=== PATIENT | female | born 1970 | race Caucasian/White ===

== ENCOUNTER → 2016-12-30 | Outpatient (CLI) | payer OTHER | LOC: FIMAGING 12:40 | PROVIDERS: ATTEND Nurse Practitioner Women's Health | DX: N64.4 Mastodynia (principal) | CPT/HCPCS: G0204 ==

== ENCOUNTER 2018-10-04 18:29 | Observation (INO) | payer OTHER ==
[2018-10-04 19:25] LABS: PLATELET COUNT 332 10^3/uL (150-400)
--- NOTE | 2018-10-04 19:37 | EDPHY ---
General - History Smoking Status: Never smoked Time Seen by Provider: 10/04/18 18:45 Narrative: CLINICAL IMPRESSION: Acute appendicitis ASSESSMENT/PLAN: 48-year-old female with a history of MS and type 1 diabetes presents to the emergency department with a 1 day history of right lower quadrant abdominal pain. No associated nausea, vomiting, diarrhea, dysuria, urgency, flank pain or visible hematuria. Patient is afebrile with stable vital signs on arrival. She does have guarding and pain to the right lower quadrant. Labs reassuring with no leukocytosis, transaminitis, pancreatitis, electrolyte imbalance or metabolic disturbance. No evidence of UTI or pyelonephritis. Pelvic ultrasound read by Radiology as positive for appendicitis with the appendix measuring 14 mm, no mention of surrounding free air or evidence of perforation. Remainder of pelvic organs normal appearing. Discussed with Dr. Rutledge, as well as Dr. Funk. He will plan to take the patient to the operating room tonight. She was kept NPO. Glucose controlled well in the ED. Antibiotics initiated. DIFFERENTIAL DX: Abdominal pain includes but not limited to urinary tract infection, pyelonephritis, infection, ectopic , salpingitis, TOA, ovarian torsion, ovarian cyst, endometriosis, uterine fibroids, acute appendicitis, acute diverticulitis, small-bowel obstruction, constipation ED PROCEDURES: See lab and/or imaging results below ED COURSE: Seen and assessed by myself. Appears uncomfortable with exam but is declining analgesics. Plan for urine, test, labs, and imaging. 7:30 p.m.: Patient reassessed, continues to decline analgesics. Labs reviewed , urine negative, no sign of UTI, no leukocytosis, transaminitis, pancreatitis, or significant electrolyte imbalance. Glucose 74 although patient states she also just checked and was 110. She is feeling okay. Imaging options discussed and she would like to start with pelvic ultrasound. 8:30 P.M.: Acute appendicitis by ultrasound. Results discussed with patient. Last ate pizza at 3:[address] Marthaller. He will come to ED to evaluate the patient. She is kept NPO. Rocephin and Flagyl ordered. CHIEF COMPLAINT: Right lower quadrant abdominal pain HPI: 48-year-old female with past medical history of multiple sclerosis and type 1 diabetes presents to the emergency department with right lower quadrant abdominal pain that began gradually this morning and has been getting worse throughout the day. No associated nausea, vomiting, diarrhea. She states she has chronic constipation but did have a bowel movement this morning. No associated fever or chills. She had pizza approximately 3 hr prior to arrival that did not exacerbate her pain. Pain does radiate up into the right upper quadrant. No flank pain, dysuria, urinary urgency or frequency. She states "I could be " although is not late on her menstrual cycle and is getting regular menstrual cycles. No abnormal discharge or vaginal bleeding. No history of kidney stones or visible hematuria. She did not take anything for her symptoms prior to arrival. She drove herself to the ED. PAST MEDICAL HISTORY: MS, type 1 diabetes See nurse/triage notes for additional history if applicable Pertinent Past Surgical History: None reported Family History: Noncontributory Social History: Nonsmoker, no alcohol REVIEW OF SYSTEMS: All other systems negative Constitutional: No fever, no chills, appetite change. ENT: No sore throat, congestion, ear pain. Cardiovascular: No chest pain, no palpitations. Respiratory: No cough, no shortness of breath. Gastrointestinal: positive for abdominal pain, no nausea or vomiting, diarrhea. Genitourinary: No hematuria, dysuria, flank pain, pelvic pain Musculoskeletal: No back pain, joint swelling, joint pain, myalgias. Skin: No rashes, color change. Neurological: No headache, dizziness, weakness. PHYSICAL EXAM: General Appearance: Alert, oriented, appropriate, cooperative, tearful, NAD, well hydrated, VSS, no hypoxia. HEENT: Oropharynx clear is no erythema or exudates, no tonsillar hypertrophy or asymmetry. Dentition without abnormality.] Respiratory: There are no retractions, lungs are clear to auscultation. Cardiac: Regular rate and rhythm, no murmurs or gallops. Gastrointestinal: Abdomen is soft, tender and guarding to right lower quadrant extending to right upper quadrant, negative Betancourt sign, bowel sounds normal, no masses/hernia, no rigidity. Neurological: [ Alert and oriented x 3, CN 2-12 grossly intact Skin: Warm, dry, no rashes, no nodules on palpation. MEDICAL DECISION MAKING: Patient was seen independently. Secondary supervising physician at time of evaluation was Dr Henley . Diagnosis: Acute appendicitis . New, requires workup Summary: See Assessment and Plan for summary of ED visit Clinical lab tests: ordered / reviewed. Independent visualization of images, tracing, or specimens: Yes. Discussed patient with another provider: Dr. Henley, Dr. Rutledge, general surgery Patient Progress: Stable in the ED. (Raul Cordero) Medical Decision Making: I did not see this patient while she was in the emergency department. However her care was discussed with the PA while the patient was in the department. I agree with treatment plan and management (Silvio Henley) - Diagnostics Imaging Results: Imaging Impressions Pelvic/Renal Ultrasound 10/04/18 19:36 Impression: 1. Findings compatible with appendicitis. 2. Normal-appearing uterus and ovaries. Findings discussed with Raul Cordero PAC at 20:30 hour, 10/04/2018. - Objective Vital Signs: Initial Vital Signs Temperature (C) 36.8 C 10/04/18 18:31 Heart Rate 77 10/04/18 18:31 Respiratory Rate 18 10/04/18 18:31 Blood Pressure 133/70 H 10/04/18 18:31 O2 Sat (%) 98 10/04/18 18:31 O2 Delivery Mode Room Air Allergies/Adverse Reactions: No Known Allergies Allergy (Unverified 03/13/15 07:23) Home Medications: Medication Instructions Recorded Herbals/Supplements -Info Only 1 each PO DAILY 03/13/15 Insulin Glulisine [Apidra] 2 - 3 unit SQ TIDMEAL 03/13/15 Levothyroxine [Synthroid 50 mcg 50 mcg PO DAILY06 03/13/15 (*)] Fingolimod HCl [Gilenya] 0.5 mg PO DAILY 10/04/18 Insulin Degludec [Tresiba] 11 unit SQ HS 10/04/18 Laboratory Results: Laboratory Results 10/04/18 18:45 10/04/18 18:45 10/04/18 10/04/18 10/04/18 19:00 19:00 18:45 WBC RBC Hgb Hct MCV MCH MCHC RDW Plt Count MPV Neut % (Auto) Lymph % (Auto) [place] % (Auto) Eos % (Auto) Baso % (Auto) Nucleat RBC Rel Count Absolute Neuts (auto) Absolute Lymphs (auto) Absolute Monos (auto) Absolute Eos (auto) Absolute Basos (auto) Absolute Nucleated RBC Immature Gran % Immature Gran # RBC/WBC/PLT Morphology Platelet Estimate Sodium 135 mEq/L mEq/L (135-145) Potassium 4.7 mEq/L mEq/L (3.5-5.2) Chloride 100 mEq/L mEq/L (97-110) Carbon Dioxide 24 mEq/l mEq/l (22-31) Anion Gap 11 mEq/L mEq/L (6-14) BUN 18 mg/dL mg/dL (7-23) Creatinine 0.7 mg/dL mg/dL (0.6-1.0) Estimated GFR > 60 Glucose 74 mg/dL mg/dL (70-100) Calcium 9.0 mg/dL mg/dL (8.5-10.4) Total Bilirubin 0.7 mg/dL mg/dL (0.1-1.4) Conjugated Bilirubin 0.6 mg/dL H mg/dL (0.0-0.5) Unconjugated Bilirubin 0.1 mg/dL mg/dL (0.0-1.1) AST 45 IU/L IU/L (14-46) ALT 28 IU/L IU/L (9-52) Alkaline Phosphatase 92 IU/L IU/L (38-126) Total Protein 8.0 g/dL g/dL (6.3-8.2) Albumin 4.3 g/dL g/dL (3.5-5.0) Lipase 22 IU/L L IU/L (23-300) Specimen Hemolysis 112 Urine Color YELLOW Urine Appearance HAZY Urine pH 6.0 (5.0-7.5) Ur Specific [place] 1.013 (1.002-1.030) Urine Protein NEGATIVE (NEGATIVE) Urine Ketones NEGATIVE (NEGATIVE) Urine Blood NEGATIVE (NEGATIVE) Urine Nitrate NEGATIVE (NEGATIVE) Urine Bilirubin NEGATIVE (NEGATIVE) Urine Urobilinogen NEGATIVE EU EU (0.2-1.0) Ur Leukocyte Esterase 2+ H (NEGATIVE) Urine RBC 1-3 /hpf /hpf (0-3) Urine WBC 15-25 /hpf H /hpf (0-3) Ur Epithelial Cells TRACE /lpf /lpf (NONE-1+) Urine Bacteria 2+ /hpf H /hpf (NONE SEEN) Urine Mucus TRACE /lpf /lpf (NONE-1+) Urine Glucose NEGATIVE (NEGATIVE) Urine Test NEGATIVE 10/04/18 18:45 WBC 9.00 10^3/uL 10^3/uL (3.80-9.50) RBC 4.23 10^6/uL 10^6/uL (4.18-5.33) Hgb 13.5 g/dL g/dL (12.6-16.3) Hct 40.5 % % (38.0-47.0) MCV 95.7 fL fL (81.5-99.8) MCH 31.9 pg pg (27.9-34.1) MCHC 33.3 g/dL g/dL (32.4-36.7) RDW 12.3 % % (11.5-15.2) Plt Count 332 10^3/uL 10^3/uL (150-400) MPV 10.1 fL fL (8.7-11.7) Neut % (Auto) 81.5 % H % (39.3-74.2) Lymph % (Auto) 4.0 % L % (15.0-45.0) [place] % (Auto) 12.1 % % (4.5-13.0) Eos % (Auto) 1.8 % % (0.6-7.6) Baso % (Auto) 0.3 % % (0.3-1.7) Nucleat RBC Rel Count 0.0 % % (0.0-0.2) Absolute Neuts (auto) 7.34 10^3/uL H 10^3/uL (1.70-6.50) Absolute Lymphs (auto) 0.36 10^3/uL L 10^3/uL (1.00-3.00) Absolute Monos (auto) 1.09 10^3/uL H 10^3/uL (0.30-0.80) Absolute Eos (auto) 0.16 10^3/uL 10^3/uL (0.03-0.40) Absolute Basos (auto) 0.03 10^3/uL 10^3/uL (0.02-0.10) Absolute Nucleated RBC 0.00 10^3/uL 10^3/uL (0-0.01) Immature Gran % 0.3 % % (0.0-1.1) Immature Gran # 0.03 10^3/uL 10^3/uL (0.00-0.10) RBC/WBC/PLT Morphology TNP Platelet Estimate TNP Sodium Potassium Chloride Carbon Dioxide Anion Gap BUN Creatinine Estimated GFR Glucose Calcium Total Bilirubin Conjugated Bilirubin Unconjugated Bilirubin AST ALT Alkaline Phosphatase Total Protein Albumin Lipase Specimen Hemolysis Urine Color Urine Appearance Urine pH Ur Specific [place] Urine Protein Urine Ketones Urine Blood Urine Nitrate Urine Bilirubin Urine Urobilinogen Ur Leukocyte Esterase Urine RBC Urine WBC Ur Epithelial Cells Urine Bacteria Urine Mucus Urine Glucose Urine Test Medications Given: Miscellaneous Medication (Insulin Glulisine [Apidra]) 2 - 3 unit SQ TIDMEAL LAISHA Stop: 04/03/19 07:59 Last Admin: 10/04/18 23:15 Dose: 1 unit Discontinued Medications Bupivacaine HCl/Epinephrine Bitart (Bupivacaine/Epi) Confirm Administered Dose 30 ml .ROUTE .STK-MED ONE Stop: 10/04/18 21:24 Last Admin: 10/04/18 21:50 Dose: 20 ml Fentanyl (Sublimaze) 25 - 100 mcg IVP Q5M PRN PRN Reason: PACU, IMMEDIATE Pain control Stop: 10/04/18 23:25 Last Admin: 10/04/18 23:24 Dose: 50 mcg Ceftriaxone Sodium/Dextrose (Rocephin 1 Gm (Premix)) 50 mls @ 100 mls/hr IV EDNOW ONE PRN Reason: Protocol Stop: 10/04/18 21:02 Last Admin: 10/04/18 20:48 Dose: 50 mls Metronidazole/Sodium Chloride (Flagyl 500 Mg (Premix)) 100 mls @ 100 mls/hr IV EDNOW ONE PRN Reason: Protocol Stop: 10/04/18 21:33 Last Admin: 10/04/18 21:12 Dose: 100 mls Departure - Departure Disposition: [facility] Acute Clinical Impression: Acute appendicitis Qualifiers: Acute appendicitis type: other Qualified Code(s): K35.890 - Other acute appendicitis without perforation or gangrene Condition: Fair
--- NOTE | 2018-10-04 20:57 | PDGENHP ---
History and Physical - Chief Complaint abdominal pain - History of Present Illness 48yo F presents with acute onset of RLQ pain. Pain started this AM, was going on about her day but the pain persisted. Was able to eat this afternoon and generally felt ok. [place] the dog park and began to have more pain, a friend suggested appendicitis which prompted her presentation here. Endorses RLQ pain, sharp, 7/10 with palpation, some chills, no fevers. Pain is stabbing and radiates to ipsilateral shoulder History Information - Allergies/Home Medication List Allergies/Adverse Reactions: No Known Allergies Allergy (Unverified 03/13/15 07:23) Home Medications: Apidra 03/13/15 [Last Taken Unknown] Herbals/Supplements -Info Only 03/13/15 [Last Taken Unknown] LEVOTHYROXINE SODIUM 03/13/15 [Last Taken Unknown] Lantus Solostar 03/13/15 [Last Taken Unknown] I have personally reviewed and updated: medical history Past Medical History: Type 1 DM, MS - Surgical History Additional surgical history: none - Family History Positive for: non-pertinent - Social History Smoking Status: Never smoked Additional social history: teacher Review of Systems Review of Systems: ROS: 10pt was reviewed & negative except for what was stated in HPI & below Physical Exam Physical Exam: Temp Pulse Resp BP Pulse Ox 36.8 C 77 18 133/70 H 98 10/04/18 18:31 10/04/18 18:31 10/04/18 18:31 10/04/18 18:31 10/04/18 18:31 Constitutional: no apparent distress, appears nourished, not in pain Eyes: PERRL, anicteric sclera, EOMI Ears, Nose, Mouth, Throat: moist mucous membranes, hearing normal, ears appear normal, no oral mucosal ulcers Cardiovascular: regular rate and rhythym, no murmur, rub, or gallop, No edema Respiratory: no respiratory distress, no rales or rhonchi, clear to auscultation Gastrointestinal: normoactive bowel sounds, other (TTP in RLQ with rebound ) Genitourinary: no bladder fullness, no bladder tenderness Skin: warm, normal color, no rashes or abrasions, no fluctuance, no induration, No mottled Musculoskeletal: full muscle strength, no muscle tenderness, normal joint ROM, no joint effusions Psychiatric: interacting appropriately, not anxious, not encephalopathic, thought process linear Lymph, Heme, Immunologic: no cervical LAD, no supraclavicular LAD Lab Data & Imaging Review 10/04/18 18:45 10/04/18 18:45 WBC 9.00 10^3/uL (3.80-9.50) 10/04/18 18:45 RBC 4.23 10^6/uL (4.18-5.33) 10/04/18 18:45 Hgb 13.5 g/dL (12.6-16.3) 10/04/18 18:45 Hct 40.5 % (38.0-47.0) 10/04/18 18:45 MCV 95.7 fL (81.5-99.8) 10/04/18 18:45 MCH 31.9 pg (27.9-34.1) 10/04/18 18:45 MCHC 33.3 g/dL (32.4-36.7) 10/04/18 18:45 RDW 12.3 % (11.5-15.2) 10/04/18 18:45 Plt Count 332 10^3/uL (150-400) 10/04/18 18:45 MPV 10.1 fL (8.7-11.7) 10/04/18 18:45 Neut % (Auto) 81.5 % (39.3-74.2) H 10/04/18 18:45 Lymph % (Auto) 4.0 % (15.0-45.0) L 10/04/18 18:45 [place] % (Auto) 12.1 % (4.5-13.0) 10/04/18 18:45 Eos % (Auto) 1.8 % (0.6-7.6) 10/04/18 18:45 Baso % (Auto) 0.3 % (0.3-1.7) 10/04/18 18:45 Nucleat RBC Rel Count 0.0 % (0.0-0.2) 10/04/18 18:45 Absolute Neuts (auto) 7.34 10^3/uL (1.70-6.50) H 10/04/18 18:45 Absolute Lymphs (auto) 0.36 10^3/uL (1.00-3.00) L 10/04/18 18:45 Absolute Monos (auto) 1.09 10^3/uL (0.30-0.80) H 10/04/18 18:45 Absolute Eos (auto) 0.16 10^3/uL (0.03-0.40) 10/04/18 18:45 Absolute Basos (auto) 0.03 10^3/uL (0.02-0.10) 10/04/18 18:45 Absolute Nucleated RBC 0.00 10^3/uL (0-0.01) 10/04/18 18:45 Immature Gran % 0.3 % (0.0-1.1) 10/04/18 18:45 Immature Gran # 0.03 10^3/uL (0.00-0.10) 10/04/18 18:45 RBC/WBC/PLT Morphology TNP 10/04/18 18:45 Platelet Estimate TNP 10/04/18 18:45 Sodium 135 mEq/L (135-145) 10/04/18 18:45 Potassium 4.7 mEq/L (3.5-5.2) 10/04/18 18:45 Chloride 100 mEq/L (97-110) 10/04/18 18:45 Carbon Dioxide 24 mEq/l (22-31) 10/04/18 18:45 Anion Gap 11 mEq/L (6-14) 10/04/18 18:45 BUN 18 mg/dL (7-23) 10/04/18 18:45 Creatinine 0.7 mg/dL (0.6-1.0) 10/04/18 18:45 Estimated GFR > 60 10/04/18 18:45 Glucose 74 mg/dL (70-100) 10/04/18 18:45 Calcium 9.0 mg/dL (8.5-10.4) 10/04/18 18:45 Total Bilirubin 0.7 mg/dL (0.1-1.4) 10/04/18 18:45 Conjugated Bilirubin 0.6 mg/dL (0.0-0.5) H 10/04/18 18:45 Unconjugated Bilirubin 0.1 mg/dL (0.0-1.1) 10/04/18 18:45 AST 45 IU/L (14-46) 10/04/18 18:45 ALT 28 IU/L (9-52) 10/04/18 18:45 Alkaline Phosphatase 92 IU/L (38-126) 10/04/18 18:45 Total Protein 8.0 g/dL (6.3-8.2) 10/04/18 18:45 Albumin 4.3 g/dL (3.5-5.0) 10/04/18 18:45 Lipase 22 IU/L (23-300) L 10/04/18 18:45 Specimen Hemolysis 112 10/04/18 18:45 Urine Color YELLOW 10/04/18 19:00 Urine Appearance HAZY 10/04/18 19:00 Urine pH 6.0 (5.0-7.5) 10/04/18 19:00 Ur Specific [place] 1.013 (1.002-1.030) 10/04/18 19:00 Urine Protein NEGATIVE (NEGATIVE) 10/04/18 19:00 Urine Ketones NEGATIVE (NEGATIVE) 10/04/18 19:00 Urine Blood NEGATIVE (NEGATIVE) 10/04/18 19:00 Urine Nitrate NEGATIVE (NEGATIVE) 10/04/18 19:00 Urine Bilirubin NEGATIVE (NEGATIVE) 10/04/18 19:00 Urine Urobilinogen NEGATIVE EU (0.2-1.0) 10/04/18 19:00 Ur Leukocyte Esterase 2+ (NEGATIVE) H 10/04/18 19:00 Urine RBC 1-3 /hpf (0-3) 10/04/18 19:00 Urine WBC 15-25 /hpf (0-3) H 10/04/18 19:00 Ur Epithelial Cells TRACE /lpf (NONE-1+) 10/04/18 19:00 Urine Bacteria 2+ /hpf (NONE SEEN) H 10/04/18 19:00 Urine Mucus TRACE /lpf (NONE-1+) 10/04/18 19:00 Urine Glucose NEGATIVE (NEGATIVE) 10/04/18 19:00 Urine Test NEGATIVE 10/04/18 19:00 Visualized and Interpreted imaging results: Yes Interpretation: US: 14mm inflamed appendix, non-compressible Assessment & Plan Assessment: Acute appendicitis (Acute) Plan: 48yo F with acute appendicitis - ABX given in ED - US looks to be non-perfd - to OR for lap appy, RBA discussed.
[2018-10-04] MEDS ORDERED: BUPIVACAINE/EPI 0.25% 30 ML SDV ONE (21:23)
--- NOTE | 2018-10-04 21:35 | PDANEPAE ---
ANE History of Present Illness appendicitis s/f lap appy ANE Past Medical History - Pulmonary History Hx Oxygen in Use at Home: No - Endocrine History Hx Diabetes: Yes Hypothyroid: Yes Endocrine History Comment: IDDM - Neurological & Psychiatric Hx Hx Neurological and Psychiatric Disorders: Yes Neurological / Psychiatric History Comment: MS. right sided weakness ANE Review of Systems Review of systems is: negative Review of Systems: - Exercise capacity Exercise capacity: >=4 METS ANE Patient History - Allergies Allergies/Adverse Reactions: No Known Allergies Allergy (Unverified 03/13/15 07:23) - Home Medications Home Medications: Herbals/Supplements -Info Only 1 each PO DAILY 03/13/15 [Last Taken 10/04/18] Insulin Glulisine [Apidra] 2 - 3 unit SQ TIDMEAL 03/13/15 [Last Taken 10/04/18] Levothyroxine [Synthroid 50 mcg (*)] 50 mcg PO DAILY06 03/13/15 [Last Taken ] Fingolimod HCl [Gilenya] 0.5 mg PO DAILY 10/04/18 [Last Taken 10/04/18] Insulin Degludec [Tresiba] 11 unit SQ HS 10/04/18 [Last Taken 10/03/18] - NPO status NPO Since - Liquids (Date): 10/04/18 NPO Since - Liquids (Time): 17:30 (juice) NPO Since - Solids (Date): 10/04/18 NPO Since - Solids (Time): 15:00 (pizza) - Anes Hx Anes Hx: no prior problems - Smoking Hx Smoking Status: Never smoked - Alcohol Use Alcohol Use: Rarely - Family Anes Hx Family Anes Hx: none ANE Labs/Vital Signs - Labs Result Diagrams: 10/04/18 18:45 10/04/18 18:45 - Vital Signs Blood Pressure: 114/79 Heart Rate: 89 Respiratory Rate: 18 O2 Sat (%): 96 Height: 160.02 cm Weight: 70.307 kg ANE Physical Exam - Airway Neck exam: FROM Mallampati Score: Class 2 Mouth exam: normal dental/mouth exam - Pulmonary Pulmonary: no respiratory distress - Cardiovascular Cardiovascular: regular rate and rhythym - ASA Status ASA Status: II, E ANE Anesthesia Plan Anesthesia Plan: general endotracheal anesthesia
[2018-10-04] MEDS ORDERED: fentaNYL 100 MCG/2 ML INJ ONE ×2 (21:48→23:23)
[2018-10-04] MEDS ORDERED: PROPOFOL/EMULSION 500 MG/50 ML BOTTLE IV ONE (21:48)
[2018-10-04] MEDS ORDERED: REMIFENTANIL HCL 1 MG VIAL ONE (21:48)
[2018-10-04] MEDS ORDERED: LIDOCAINE 2% 100 MG/5 ML SYR ONE (21:49)
[2018-10-04] MEDS ORDERED: ONDANSETRON 4 MG/2 ML VIAL ONE (21:49)
[2018-10-04] MEDS ORDERED: DEXAMETHASONE 4 MG/ML VIAL ONE ×2 (21:49)
[2018-10-04] MEDS ORDERED: LIDOCAINE HCL 160 MG/4 ML LTA KIT TP ONE (21:52)
[2018-10-04] MEDS ORDERED: PHENYLEPHRINE HCL 100 MCG/ML SYR ONE (22:10)
[2018-10-04] MEDS ORDERED: HYDROmorphONE/DILAUDID 2 MG/ML INJ IVP PRN (22:24)
[2018-10-04] MEDS ORDERED: ALBUTEROL 3 ML DEYVIAL IH PRN (22:24)
[2018-10-04] MEDS ORDERED: ACETAMINOPHEN 500 MG TAB PO PRN (22:24)
[2018-10-04] MEDS ORDERED: MEPERIDINE 25 MG/0.5 ML AMP IVP PRN (22:24)
[2018-10-04] MEDS ORDERED: DEXAMETHASONE 4 MG/ML VIAL IVP PRN (22:24)
[2018-10-04] MEDS ORDERED: LR 500 ML IV PRN (22:24)
[2018-10-04] MEDS ORDERED: oxyCODONE IR 5 MG TAB PO PRN (22:24)
[2018-10-04] MEDS ORDERED: METOCLOPRAMIDE 10 MG/2 ML VIAL IVP PRN (22:24)
[2018-10-04] MEDS ORDERED: fentaNYL 100 MCG/2 ML INJ IVP PRN (22:24)
[2018-10-04] MEDS ORDERED: ONDANSETRON 4 MG/2 ML VIAL IVP PRN ×2 (22:24→22:47)
[2018-10-04] MEDS ORDERED: PHENYLEPHRINE HCL 100 MCG/ML SYR IVP PRN (22:24)
[2018-10-04] MEDS ORDERED: NALOXONE HCL 0.4 MG/ML INJ IVP PRN (22:24)
[2018-10-04] MEDS ORDERED: LABETALOL HCL 5 MG/ML 20 ML MDV IVP PRN (22:24)
[2018-10-04] MEDS ORDERED: PROMETHAZINE HCL 25 MG/ML INJ IVP PRN (22:24)
[2018-10-04] MEDS ORDERED: HYDROmorphONE/DILAUDID 1 MG/ML INJ IVP PRN (22:47)
--- NOTE | 2018-10-04 22:47 | POSTOPPROG ---
Post Op Note Date of Operation: 10/04/18 Surgeon: Scotty Funk Anesthesiologist: Valentin Anesthesia: GET(General Endotracheal) Pre-op Diagnosis: appendicitis Post-op Diagnosis: same Procedure: laparoscopic appendectomy Findings: acute, non perforated Inf/Abcess present in the surg proc area at time of surgery?: No EBL: Minimal Specimen(s): appendix
[2018-10-04] MEDS ORDERED: D50W 25 GM/50 ML SYR IVP PRN (22:49)
[2018-10-04] MEDS ORDERED: D5W 1/2 NS W/ 20 KCl/L 1,000 ML IV SCH (23:00)
[2018-10-04] MEDS: INSULIN GLULISINE SQ SCH (23:15)
[2018-10-05] MEDS ORDERED: INSULIN REGULAR HUMAN 100 UNIT/ML UNIT SC ONE (01:45)
[2018-10-05] MEDS: INSULIN GLULISINE SQ SCH ×3 (02:00→07:30)
[2018-10-05] MEDS: oxyCODONE IR 5 MG TAB PO PRN ×2 (02:09→08:34)
[2018-10-05] MEDS: ACETAMINOPHEN 325 MG TAB PO PRN ×3 (02:10→13:38)
[2018-10-05] MEDS ORDERED: LEVOTHYROXINE 50 MCG TAB PO SCH (06:00)
[2018-10-05] MEDS ORDERED: INSULIN REGULAR HUMAN 100 UNIT/ML UNIT SC SCH (07:30)
--- NOTE | 2018-10-05 08:35 | GOP ---
[f rep st] OPERATIVE REPORT DATE OF OPERATION: 10/04/2018 SURGEON: Scotty Funk MD CITY COLLECTOR: None. ANESTHESIA: General endotracheal. ANESTHESIOLOGIST: Taj Hanson MD PREOPERATIVE DIAGNOSIS: Appendicitis. POSTOPERATIVE DIAGNOSIS: Appendicitis. PROCEDURE PERFORMED: Laparoscopic appendectomy. FINDINGS: Acute indurated nonperforated appendicitis. SPECIMENS: Appendix. ESTIMATED BLOOD LOSS: 5 cc. DESCRIPTION OF PROCEDURE: The patient was greeted in the preoperative suite. Once again, risks, koko efits, and alternatives were discussed. The consent was signed. She was then brought back to the op erative suite, placed on the OR table in supine position. After all anesthesia machines including SC Ds were on and functioning, [facility] time-out was performed. After successful induc tion of general anesthesia, the patient's abdomen was prepped and draped in typical sterile fashion. I commenced the procedure by making an infraumbilical cutdown through which the Veress needle was pa ssed. I achieved pneumoperitoneum to 15 mmHg, which was well tolerated by the patient. Through this , I then inserted a 12 mm Visiport. Once successfully in the abdomen, I inserted 2 additional 5 mm t rocars, 1 in the suprapubic and 1 in the left lower quadrant, both under direct visualization. I urmila ntified the appendix by tracing the taeniae inferiorly. It was edematous and attached to the adjacen t fat, but not grossly perforated. I created a window at the base and successfully amputated the bas e of the appendix off the cecum with a single fire of the Endo TAYE blue load stapler. In the same fa shion, I took the mesoappendix with 2 fires of the white load same staple. It was then placed in an EndoCatch bag and removed. I investigated my staple lines, which were both clean, dry, and hemostati c. I irrigated the right lower quadrant as well as the pelvis with a liter of sterile saline, noting clear effluent in the suction canister. Local anesthesia was then infiltrated into the port sites, which were removed. Pneumoperitoneum was evacuated. My infraumbilical site was closed with a 0 Vicr yl stitch noting excellent fascial reapproximation. The skin was closed with Monocryl. Dermabond wa s placed. The patient was then extubated in the operative suite and taken to PACU in satisfactory co ndition. DRAINS: None. COUNTS: All counts were reported as correct x2. /[id number]/MODL
[2018-10-05] MEDS ORDERED: Fingolimod Hcl [Gilenya] 0.5 MG PO SCH (09:00)
[2018-10-05 14:19] VITALS: BP 106/59
--- NOTE | 2018-10-10 06:08 | POSTANESTH ---
Post Anesthetic Evaluation Cardiovascular Status: Normal, Stable Respiratory Status: Normal, Stable Level of Consciousness/Mental Status: Can Participate in Eval Pain Control: Adequate, Prn Tx Ordered Nausea/Vomiting Control: Adequate, Prn Tx Ordered Complications Possibly Related to Anesthesia: None Noted
== END 2018-10-05 14:00 | disposition home or self-care (01) ==
LOC: FOB 23:33
PROVIDERS: ADMIT Surgery; ATTEND Surgery
PROC: 0DTJ4ZZ Resection of Appendix, Percutaneous Endoscopic Approach (ICD-10-PCS; principal; 2018-10-04 21:30)
DX: K35.80 Unspecified acute appendicitis (principal); G35 Multiple sclerosis; E10.9 Type 1 diabetes mellitus without complications
CPT/HCPCS: 44970; 76856; 96365; 96375; 99285; G0378; J0696; J1100; J2001; J2370; J2405; J2704; J3010